=== PATIENT | female | born 1960 | race African-American/Black ===

== ENCOUNTER 2025-04-10 13:09 | Inpatient (IN) | payer OTHER, MEDICAID ==
[~2025-04-10] VITALS: Ht 167.6 cm; Wt 112.2 kg
[~2025-04-10 13:09] MED LIST: AMLO1TAB23 PO; CHOL20007 PO; LOSA100T25 PO; OMEP20TA PO; PRED20TA2 PO
--- NOTE | 2025-04-10 13:21 | ECG ---
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
--- NOTE | 2025-04-10 14:43 | ED.PDOC ---
History of Present Illness HPI Comments 64-year-old female presents to the ER with prior medical history of hypertension, AFib and the chief complaint of chest pain. Patient reports on having dizziness, headache since September, with having a syncopal episode with trauma to her head and with palpitations for the past two days, with also chest pain yesterday. She has had similar symptoms in the past, two years ago. Pt states that the symptoms began around September, and has been gradually worsening for the past two days. Denies chills, fever, N/V/D, SOB. No other associated symptoms, modifiers, recent injuries or sick contacts present at this time. Chief Complaint: Chest Pain Time Seen by MD: 14:00 Primary Care Provider: MIKE Reviewed Notes: Nurses Notes, Medications, Allergies Allergies: Coded Allergies: NO KNOWN ALLERGIES (Unverified , 08/15/23) Home Meds Active Scripts Prednisone (Prednisone) 20 Mg Tab, 20 MG PO DAILY for 5 Days, #5 MG Prov:CARLOS A ARGUETA MD 08/18/23 Reported Medications Cholecalciferol (VITAMIN D3) 2,000 Unit Tab, 1 TAB PO DAILY 08/17/23 Omeprazole (Gnp Omeprazole) 20 Mg Tab, 40 MG PO, TAB 08/17/23 Losartan Potassium & Hydrochlo (Hyzaar) 1 Tab Tab, 1 TAB PO DAILY 08/17/23 Amlodipine Besylate (Amlodipine Besylate) 10 Mg Tab, 1 TAB PO DAILY, % 08/17/23 Information Source: Patient Mode of Arrival: Ambulatory Severity: Moderate Timing: Days Duration: Since onset, Days Prehospital treatment: None Past Medical History PAST MEDICAL HISTORY: AFIB, HTN Surgical History: Denies all surgeries SOFTWARE SPECIALIST History: No Pertinent SOFTWARE SPECIALIST History Family History Family History: Reviewed,noncontributory to illness, Unknown Social History Smoker: Non-Smoker Alcohol: Denies ETOH Use Drugs: Denies Drug Use Lives In: Home Constitutional: denies: chills, diaphoresis, fatigue, fever, malaise, sweats, weakness, others EENTM: denies: blurred vision, double vision, ear bleeding, ear discharge, ear drainage, ear pain, ear ringing, eye pain, eye redness, hearing loss, mouth pain, mouth swelling, nasal discharge, nose bleeding, nose congestion, nose pain, photophobia, tearing, throat pain, throat swelling, voice changes, others Respiratory: denies: cough, hemoptysis, orthopnea, SOB at rest, shortness of breath, SOB with excertion, stridor, wheezing, others Cardiovascular: reports: chest pain, palpitations; denies: dizzy spells, diaphoresis, Dyspnea on exertion, edema, irregular heart beat, left arm pain, lightheadedness, PND, syncope, others Gastrointestinal: denies: abdomen distended, abdominal pain, blood streaked bowels, constipated, diarrhea, dysphagia, difficulty swallowing, hematemesis, melena, nausea, poor appetite, poor fluid intake, rectal bleeding, rectal pain, vomiting, others Genitourinary: denies: abnormal vagina bleeding, burning, dyspareunia, dysuria, flank pain, frequency, hematuria, incontinence, pain, , vagina discharge, urgency, others Neurological: reports: dizziness, fainting, headache; denies: left sided numbness, left sided weakness, numbness, paresthesia, pre-existing deficit, right sided numbness, right sided weakness, seizure, speech problems, tingling, tremors, weakness, others Musculoskeletal: denies: back pain, gout, joint pain, joint swelling, muscle pain, muscle stiffness, neck pain, others Integumetry: denies: bruises, change in color, change in hair/nails, dryness, laceration, lesions, lumps, rash, wounds, others Allergic/Immunocompromised: denies: Difficulty Healing, Frequent Infections, Hives, Itching, others Hematologic/Lymphatic: denies: anemia, blood clots, easy bleeding, easy bruising, swollen glands, others Endocrine: denies: excessive hunger, excessive sweating, excessive thirst, excessive urination, flushing, intolerance to cold, intolerance to heat, unexplained weight gain, unexplained weight loss, others Psychiatric: denies: anxiety, bipolar disorder, depression, hopeless, panic disorder, schizophrenia, sleepless, suicidal, others All Other Systems: Reviewed and Negative Physical Exam General Appearance: Moderate Distress, Normal HEENT: Normal ENT Inspection, Pharynx Normal, TMs Normal Neck: Full Range of Motion, Non-Tender, Normal, Normal Inspection Respiratory: Chest Non-Tender, Lungs Clear, No Accessory Muscle Use, No Respiratory Distress, Normal Breath Sounds Cardiovascular: Irregular, No Edema, No JVD, No Murmur, No Gallop, Normal Peripheral Pulses Breast Exam: Deferred Gastrointestinal: No Organomegaly, Non Tender, No Pulsatile Mass, Normal Bowel Sounds, Soft Genitalia: Deferred Pelvic: Deferred Rectal: Deferred Extremities: No calf tenderness, Normal capillary refill, Normal inspection, Normal range of motion, Non-tender, No pedal edema Musculoskeletal : Apperance: Normal Neurologic: Alert, 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 Was a procedure done?: No Differential Dx Considerations may include: Autonomic disorder Electrolyte imbalance X-Ray, Labs, Meds, VS Vital Signs Date Time Temp Pulse Resp B/P (MAP) Pulse Ox O2 Delivery O2 Flow Rate FiO2 04/10/25 16:42 97 18 143/88 (106) 98 04/10/25 14:35 68 04/10/25 13:27 97.0 70 16 112/54 (73) 98 97.0 04/10/25 13:09 97.1 70 16 112/54 (73) 98 97.1 Lab Test 04/10/25 14:39 04/10/25 13:41 Range/Units Troponin I High Sensitivity 5 5 </=34 ng/L White Blood Count 5.8 4.4-10.8 10^3/uL Red Blood Count 3.86 L 4.0-5.20 10^6/uL Hemoglobin 11.9 L 12.2-16.2 g/dL Hematocrit 35.3 L 36.0-46.0 % Mean Corpuscular Volume 91.6 80.0-100.0 fL Mean Corpuscular Hemoglobin 30.9 28.0-32.0 pg Mean Corpuscular Hemoglobin Concent 33.7 32.0-36.0 g/dL Red Cell Distribution Width 13.6 11.8-14.3 % Platelet Count 222 140-450 10^3/uL Mean Platelet Volume 10.1 6.9-10.8 fL Neutrophils (%) (Auto) 44.1 37.0-80.0 % Lymphocytes (%) (Auto) 44.8 10.0-50.0 % Monocytes (%) (Auto) 7.3 0.0-12.0 % Eosinophils (%) (Auto) 2.7 0.0-7.0 % Basophils (%) (Auto) 1.1 0.0-2.0 % Neutrophils # (Auto) 2.6 1.6-8.6 10 ^3/uL Lymphocytes # (Auto) 2.6 0.4-5.4 10 ^3/uL Monocytes # (Auto) 0.4 0-1.3 10 ^3/uL Eosinophils # (Auto) 0.2 0-0.8 10 ^3/uL Basophils # (Auto) 0.1 0-0.2 10 ^3/uL Nucleated Red Blood Cells 0.1 % Sodium Level 136 136-145 mmol/L Potassium Level 4.0 3.5-5.1 mmol/L Chloride Level 104 98-107 mmol/L Carbon Dioxide Level 24 20-31 mmol/L Anion Gap 8 5-15 Blood Urea Nitrogen 24 H 9-23 mg/dL Creatinine 1.30 H 0.550-1.02 mg/dL Glomerular Filtration Rate Calc 45 >90 mL/min BUN/Creatinine Ratio 18.5 10.0-20.0 Serum Glucose 96 74-106 mg/dL Calcium Level 11.3 H 8.7-10.4 mg/dL Current Medications Medications (Trade) Dose Ordered Sig/Rubin Route Start Time Stop Time Status Last Admin Aspirin 325 mg ONCE ONCE PO 04/10/25 15:30 04/10/25 15:31 DC 04/10/25 16:40 Patient alert. States that she has been having dizziness. No sign of any head injury. Vitals stable. No abnormal behavior. No scalp hematoma. Complaining of chest pain. History of cardiac. Reviewed her previous visit. Spoke with her previous physician about her condition. Cardiac marker within normal limits. EKG does show changes. Possibly will need stress test. Explained to the patient. Continue monitoring. Time of 1ST Reevaluation: 14:30 Reevaluation 1ST: Unchanged Patient Education/Counseling: Diagnosis, Treatment, Prognosis Family Education/Counseling: No Family Present Departure 1 Departure Time of Disposition: 15:28 Impression: Primary Impression: Chest pain of unknown etiology Additional Impression: Autonomic disorder Disposition: ADMITTED INPATIENT Admit to: Med Surg Condition: Guarded Critical Care Note Critical Care Time?: No Stability Stability form required: No Heart Score Heart Score: Heart Score Response (Comments) Value History Slightly Suspicious 0 EKG Normal 0 Age >65 2 Risk Factors >3 or Hx ASHD 2 Troponin Normal limit 0 Total 4 I personally scribed for CARLOS LUNDY MD ([email or web address]) on 04/10/25 at 14:43. Electronically submitted by Felipe Mclain ([email or web address]). CARLOS LUNDY MD Apr 10, 2025 14:43
[2025-04-10] MEDS: NITROGLYCERIN 0.4 MG SL TAB SL ONE (15:30)
[2025-04-10 15:35] LABS: Basophils # (auto) 0.1 10 ^3/uL (0-0.2); Basophils % (auto) 1.1 % (0.0-2.0); Eosinophils # (auto) 0.2 10 ^3/uL (0-0.8); Eosinophils % (auto) 2.7 % (0.0-7.0); Hematocrit 35.3 % (36.0-46.0); Hemoglobin 11.9 g/dL (12.2-16.2); Lymphocytes # (auto) 2.6 10 ^3/uL (0.4-5.4); Lymphocytes % (auto) 44.8 % (10.0-50.0); Mean Corpuscular Hemoglobin 30.9 pg (28.0-32.0); Mean Corpuscular Hgb Conc. 33.7 g/dL (32.0-36.0); Mean Corpuscular Volume 91.6 fL (80.0-100.0); Monocytes # (auto) 0.4 10 ^3/uL (0-1.3); Monocytes % (auto) 7.3 % (0.0-12.0); Neutrophils # (auto) 2.6 10 ^3/uL (1.6-8.6); Neutrophils % (auto) 44.1 % (37.0-80.0); Nucleated Red Blood Cells % 0.1 %; Platelet Count (auto) 222 10^3/uL (140-450); Red Blood Cells 3.86 10^6/uL (4.0-5.20); Red Cell Distribution Width 13.6 % (11.8-14.3); White Blood Cell 5.8 10^3/uL (4.4-10.8)
[2025-04-10 15:37] LABS: Chloride 104 mmol/L (98-107)
[2025-04-10 15:38] LABS: Anion Gap 8 (5-15); Carbon Dioxide 24 mmol/L (20-31)
[2025-04-10 15:43] LABS: Glucose 96 mg/dL (74-106)
[2025-04-10 15:44] LABS: BUN/Creatinine Ratio 18.5 (10.0-20.0)
[2025-04-10 15:53] LABS: Blood Urea Nitrogen 24 mg/dL (9-23); Calcium 11.3 mg/dL (8.7-10.4); Sodium 136 mmol/L (136-145)
[2025-04-10] MEDS: ASPirin 325 MG TAB PO ONE (16:40)
[2025-04-10 20:11] LABS: Urine Bacteria FEW /hpf (None Seen); Urine Blood Negative /uL (Negative); Urine Clarity Clear (Clear); Urine Color Yellow (Yellow); Urine Protein, UAD Negative (Negative); Urine Squamous Epithelial Cell FEW /hpf (<5); Urine Urobilinogen Normal (Negative); Urine WBC 25 /HPF (0-5); Urine pH 5.5 (5.0-9.0)
--- NOTE | 2025-04-10 22:02 | DVH ---
CHEST RADIOGRAPH Indication: chest pain Technique: Single frontal view of the chest was obtained Comparison: None FINDINGS: Lines and Tubes: None Lungs: Clear Pleura: No effusion. No pneumothorax. Cardiomediastinal contours: Unremarkable Bones: Unremarkable IMPRESSION: Clear lungs.
[2025-04-11 02:30] VITALS: PULSE 77; RESP 13; O2SAT 99
--- NOTE | 2025-04-11 02:35 | PRN ---
Misceleneous Note Note Note Patient was seen and evaluated ER waiting room. At this time there have been major delays in care with the patient being in the emergency department for over 13 hours due to hospital staff failing to contact [facility] admitting team. Patient did experience a syncopal episode with head trauma. CT of the head without contrast has been ordered by the emergency department physician. Admission orders pending the results of CT of the head without contrast. NIK JAVIER NP Apr 11, 2025 02:35
[2025-04-11] MEDS ORDERED: ONDANSETRON HCL 4 MG/2 ML VIAL IV PRN (03:15)
[2025-04-11] MEDS ORDERED: LORazepam 0.5 MG TAB PO PRN (03:15)
[2025-04-11] MEDS ORDERED: MECLIZINE HCL 25 MG TAB PO PRN (03:15)
[2025-04-11] MEDS ORDERED: hydrALAZINE HCL 20 MG/ML VL IV PRN (03:15)
[2025-04-11] MEDS ORDERED: NITROGLYCERIN 0.4 MG SL TAB SL PRN (03:15)
[2025-04-11] MEDS ORDERED: MORPHINE SULFATE INJ 2 MG/ml SYRG IV PRN (03:15)
[2025-04-11] MEDS ORDERED: DOCUSATE SOD 100 MG CAP PO PRN (03:15)
--- NOTE | 2025-04-11 03:16 | DVH ---
EXAM: CT HEAD WITHOUT CONTRAST INDICATION: headstrike TECHNIQUE: CT of the head without intravenous contrast. Radiation Dose : 1. Head: CT Dose: CTDI volume is 65.0 mGy. Dose-length product is 1041.65 mGy*cm The dose indicators for CT are the volume Computed Tomography (CT) Dose Index (CTDIvol) and the Dose Length Product (DLP), and are measured in units of mGy and mGy-cm, respectively. These indicators are not patient dose, but values generated from the CT scanner acquisition factors. The report includes radiation exposure data for exposures received during this examination. COMPARISON: CT HEAD WITHOUT CONTRAST on DOS: 08/15/23 FINDINGS: There is no evidence of acute intracranial hemorrhage, extra-axial collection, mass effect, midline s hift, herniation or hydrocephalus. The ventricles, sulci and cisterns are age appropriate. The friedman-white differentiation is intact. The visualized paranasal sinuses and mastoid air cells are clear. The surrounding soft tissues and osseous structures are unremarkable. IMPRESSION: No acute intracranial abnormality. The posterior fossa and cerebellum are suboptimally evaluated secondary to extensive artifact. Radiation optimization: All CT scans at this facility use at least one of these dose optimization ezekiel hniques: automated exposure control mA and/or kV adjustment per patient size (includes targeted exam s where dose is matched to clinical indication) or iterative reconstruction.
[2025-04-11] MEDS: SODIUM CHLORIDE 0.9% 1,000 ML IV SCH (03:49)
--- NOTE | 2025-04-11 04:01 | DVHHP2 ---
NIK JAVIER ELECTRO MECHANICAL DESIGNER 04/11/25 0401: History of Present Illness Reason for Visit: Syncope and collapse, CP History of Present Illness 64-year-old female with past medical history of hypertension, as per the patient irregular heartbeat (without official diagnosis) presents with complaints of a syncopal episode prior to arrival to the emergency department. [place]. States when she woke up everybody was surrounding her. Endorses head injury to the left side of her head. Patient also states that the previous 2 days she has been having episodes of dizziness, palpitations, chest pressure. At this time chest pain and palpitations have improved. States she has not been seen by Cardiology on an outpatient basis. Was previously admitted to this facility in 2022 with similar symptoms. Was seen by Dr. Napoles at that time. During the emergency department evaluation CBC was unremarkable. BMP had a mild elevation in BUN 24, creatinine 1.30, otherwise unremarkable. UA was positive for leukocyte esterase. Troponin -5/5. CT of the head negative. CXR no acute cardiopulmonary disease. At this time patient denies any fevers, chills, shortness of breath, nausea, vomiting, leg swelling, hematemesis, hematochezia, melena, hematuria. Cardiovascular: HTN Smoke: No ALCOHOL: none Drugs: None Lives: with Family Review of Systems Constitutional: No: Fever, Chills, Sweats, Weakness, Malaise, Other Eyes: No: Pain, Vision change, Conjunctivae inflammation, Eyelid inflammation, Other, Redness ENT: No: Ear pain, Ear discharge, Nose pain, Nose discharge, Nose congestion, Mouth pain, Mouth swelling, Throat pain, Throat swelling, Other Respiratory: No: Cough, Dry, Shortness of breath, SOB with excertion, Wheezing, Hemoptysis, Pleuritic Pain, Sputum, Wheezing, Other Cardiovascular: Chest Pain, Palpitations, Lt Headedness; No: Orthopnea, Paroxysmal Noc. Dyspnea, Edema, Other Gastrointestinal: No: Nausea, Vomiting, Abdominal Pain, Diarrhea, Constipation, Melena, Hematochezia, Other Genitourinary: No Dysuria, No Frequency, No Incontinence, No Hematuria, No Retention, No Other Musculoskeletal: No: other, neck pain, shoulder pain, arm pain, back pain, hand pain, leg pain, foot pain Skin: No: Rash, Lesions, Jaundice, Bruising, Other Neurological: No: Weakness, Numbness, Incoordination, Change in speech, Confusion, Seizures, Other Allergies: Coded Allergies: NO KNOWN ALLERGIES (Unverified , 08/15/23) Medications Current Medications Medications Dose Ordered Sig/Rubin Route Start Time Stop Time Status Last Admin Dose Admin Sodium Chloride 1,000 ml @ 75 mls/hr [id number] IV 04/11/25 03:15 04/11/25 16:34 04/11/25 03:49 75 MLS/HR Lorazepam 0.5 mg Q8HPRN PRN PO 04/11/25 03:15 Docusate Sodium 100 mg BIDPRN PRN PO 04/11/25 03:15 Acetaminophen 650 mg Q6HP PRN PO 04/11/25 03:15 Acetaminophen/ Hydrocodone Bitart 1 tab Q6HPRN PRN PO 04/11/25 03:15 Ondansetron HCl 4 mg Q4HP PRN IV 04/11/25 03:15 Enoxaparin Sodium 40 mg DAILY SC 04/11/25 10:00 Nitroglycerin 0.4 mg Q5MINP PRN SL 04/11/25 03:15 Morphine Sulfate 2 mg Q30M PRN IV 04/11/25 03:15 Ceftriaxone Sodium 50 ml @ 100 mls/hr DAILY IV 04/11/25 10:00 Pantoprazole Sodium 40 mg DAILY IV 04/11/25 10:00 Meclizine HCl 25 mg TIDP PRN PO 04/11/25 03:15 Hydralazine HCl 10 mg Q6HPRN PRN IV 04/11/25 03:15 Exam Vital Signs Vital Signs Date Time Temp Pulse Resp B/P (MAP) Pulse Ox O2 Delivery O2 Flow Rate FiO2 04/11/25 02:30 77 13 99 Room Air* 0 21 04/11/25 02:30 97.9 132/80 (97) 97.9 General Appearance: Alert, Oriented X3, Cooperative, mild distress HEENT: Atraumatic, PERRLA, EOMI Respiratory: Clear to auscultation, Normal air movement Cardiovascular: Regular rate, Normal S1, Normal S2 Abdominal: Normal bowel sounds, Soft, No tenderness Extremities: No clubbing, No cyanosis, No edema Skin: No rashes, No breakdown Neuro: Normal speech, Strength at 5/5 X4 ext Psych/Mental Status: Mental status NL, Mood NL Labs/Xrays Labs Test 04/10/25 17:06 04/10/25 14:39 04/10/25 13:41 Range/Units Urine Color Yellow Yellow Urine Clarity Clear Clear Urine pH 5.5 5.0-9.0 Urine Specific [place] 1.010 1.001-1.035 Urine Protein Negative Negative Urine Ketones Negative Negative Urine Blood Negative Negative /uL Urine Nitrite Negative Negative Urine Bilirubin Negative Negative Urine Urobilinogen Normal Negative mg/dL Urine Leukocyte Esterase 3+ Negative /uL Urine RBC 2 0 - 4 /hpf Urine Microscopic WBC 25 H 0-5 /HPF Urine Squamous Epithelial Cells Few <5 /hpf Urine Bacteria Few H None Seen /hpf Urine Glucose Normal Normal mg/dL Troponin I High Sensitivity 5 </=34 ng/L White Blood Count 5.8 4.4-10.8 10^3/uL Red Blood Count 3.86 L 4.0-5.20 10^6/uL Hemoglobin 11.9 L 12.2-16.2 g/dL Hematocrit 35.3 L 36.0-46.0 % Mean Corpuscular Volume 91.6 80.0-100.0 fL Mean Corpuscular Hemoglobin 30.9 28.0-32.0 pg Mean Corpuscular Hemoglobin Concent 33.7 32.0-36.0 g/dL Red Cell Distribution Width 13.6 11.8-14.3 % Platelet Count 222 140-450 10^3/uL Mean Platelet Volume 10.1 6.9-10.8 fL Neutrophils (%) (Auto) 44.1 37.0-80.0 % Lymphocytes (%) (Auto) 44.8 10.0-50.0 % Monocytes (%) (Auto) 7.3 0.0-12.0 % Eosinophils (%) (Auto) 2.7 0.0-7.0 % Basophils (%) (Auto) 1.1 0.0-2.0 % Neutrophils # (Auto) 2.6 1.6-8.6 10 ^3/uL Lymphocytes # (Auto) 2.6 0.4-5.4 10 ^3/uL Monocytes # (Auto) 0.4 0-1.3 10 ^3/uL Eosinophils # (Auto) 0.2 0-0.8 10 ^3/uL Basophils # (Auto) 0.1 0-0.2 10 ^3/uL Nucleated Red Blood Cells 0.1 % Sodium Level 136 136-145 mmol/L Potassium Level 4.0 3.5-5.1 mmol/L Chloride Level 104 98-107 mmol/L Carbon Dioxide Level 24 20-31 mmol/L Anion Gap 8 5-15 Blood Urea Nitrogen 24 H 9-23 mg/dL Creatinine 1.30 H 0.550-1.02 mg/dL Glomerular Filtration Rate Calc 45 >90 mL/min BUN/Creatinine Ratio 18.5 10.0-20.0 Serum Glucose 96 74-106 mg/dL Calcium Level 11.3 H 8.7-10.4 mg/dL Assessment/Plan Assessment/Plan Syncope and collapse Chest pain Hx Hypertension Acute urinary tract infection Acute kidney injury Plan Admit telemetry Cardiology consult. Echocardiogram. Continue home medications. As needed antihypertensive for optimal BP management. Orthostatic vital signs. Serial troponin. IV fluids. NS @75ml/hr x 1 liter IV ABX Monitor BMP. Trend BUN/creatinine. Correct Electrolytes as needed Urine culture pending Physical therapy evaluation GI ppx protonix / DVT ppx lovenox Plan discussed with: Patient My Orders Orders - NIK JAVIER NP Procedure Category Date Status Time Admit ADMIT 04/11/25 Transmitted 03:12 Code Status CODE 04/11/25 Transmitted 03:12 Vital Signs [facility] 04/11/25 In Process 03:12 Review Orders With JO 04/11/25 In Process Adm. 03:12 Encourage Activity As JO 04/11/25 In Process Tolerate 03:12 Consistent DIET 04/11/25 Transmitted Carb(Ccho)Diabetes Breakfast Sodium Chloride 0.9% PHA 04/11/25 In Process 03:15 Oxygen By Face Mask RT 04/11/25 Transmitted 03:12 Lorazepam Tablet PHA 04/11/25 In Process (Ativan Tablet) 03:15 Docusate Sodium PHA 04/11/25 In Process Capsule (Colace 03:15 Acetaminophen Tablet PHA 04/11/25 In Process (Tylenol Tablet) 03:15 Notify Of Changes JO 04/11/25 In Process From Base 03:12 Advance Directive JO 04/11/25 In Process 03:12 Echo 2d Mode Cardiac US 04/11/25 Logged DOP 03:12 Basic Metabolic Panel LAB 04/11/25 Logged 05:00 Basic Metabolic Panel LAB 04/12/25 Verified 05:00 Basic Metabolic Panel LAB 04/13/25 Verified 05:00 Complete Blood Count LAB 04/11/25 Logged 05:00 Complete Blood Count LAB 04/12/25 Verified 05:00 Complete Blood Count LAB 04/13/25 Verified 05:00 Urine Bacterial ANUSHA 04/11/25 Logged Culture 03:12 Patient Condition ORDERS 04/11/25 Transmitted 03:12 Allergies JO 04/11/25 In Process 03:12 Hydrocodone-Acet PHA 04/11/25 In Process 5/325mg Tab ([place] 03:15 Ondansetron Hcl PHA 04/11/25 In Process (Zofran) 03:15 Enoxaparin Sodium PHA 04/11/25 In Process (Lovenox) 10:00 Sequential JO 04/11/25 In Process Compression Device Nitroglycerin PHA 04/11/25 In Process Sublingual (Ntrostat 03:15 Morphine Sulfate PHA 04/11/25 In Process Injection 03:15 Stat Ekg For Chest JO 04/11/25 In Process Pain 03:12 Notify Md Of Changes JO 04/11/25 In Process From Base 03:12 Garment Parts Cutter Hand For JO 04/11/25 In Process 24 Hours 03:12 Emergency Dysrhythmia JO 04/11/25 In Process Protocol 03:12 Rhythm Strips Once JO 04/11/25 In Process Every Shift 03:12 Oxygen By Nasal RT 04/11/25 Transmitted Cannula 03:12 * Cardiology Consult CONS 04/11/25 Transmitted 03:12 Orthostatic Vital ORDERS 04/11/25 Transmitted Signs 08:00 Orthostatic Vital ORDERS 04/11/25 Transmitted Signs 14:00 Orthostatic Vital ORDERS 04/11/25 Transmitted Signs 20:00 Orthostatic Vital ORDERS 04/12/25 Transmitted Signs 02:00 Ceftriaxone 1gm/50ml PHA 04/11/25 In Process D5w (Rocephin) 10:00 Pantoprazole PHA 04/11/25 In Process (Protonix) 10:00 Meclizine Tablet PHA 04/11/25 In Process (Antivert Tablet) 03:15 Troponin-I Hs LAB 04/11/25 Logged 05:00 Troponin-I Hs LAB 04/11/25 Logged 13:00 Hydralazine Injection PHA 04/11/25 In Process (Apresoline Inject 03:15 Pt Request For Service PT 04/11/25 Logged 03:33 Date of Service: Apr 11, 2025 Billing Provider: POOJA AYALA MD Common Visit Codes: NOT BILLABLE POOJA AYALA MD 04/11/25 1316: Review of Systems Allergies: Coded Allergies: NO KNOWN ALLERGIES (Unverified , 08/15/23) Assessment/Plan Assessment/Plan Patient's chart is reviewed and discussed with the nurse practitioner. I agree with the nurse practitioner's evaluation, documentation, assessment and care plan as outlined. NIK JAVIER NP Apr 11, 2025 04:01 POOJA AYALA MD Apr 11, 2025 13:16
[2025-04-11 05:05] LABS: Basophils # (auto) 0.1 10 ^3/uL (0-0.2); Basophils % (auto) 1.3 % (0.0-2.0); Eosinophils # (auto) 0.2 10 ^3/uL (0-0.8); Eosinophils % (auto) 3.1 % (0.0-7.0); Hematocrit 34.7 % (36.0-46.0); Hemoglobin 11.7 g/dL (12.2-16.2); Lymphocytes # (auto) 2.4 10 ^3/uL (0.4-5.4); Lymphocytes % (auto) 44.2 % (10.0-50.0); Mean Corpuscular Hemoglobin 31.2 pg (28.0-32.0); Mean Corpuscular Hgb Conc. 33.8 g/dL (32.0-36.0); Mean Corpuscular Volume 92.3 fL (80.0-100.0); Monocytes # (auto) 0.3 10 ^3/uL (0-1.3); Monocytes % (auto) 5.9 % (0.0-12.0); Neutrophils # (auto) 2.5 10 ^3/uL (1.6-8.6); Neutrophils % (auto) 45.5 % (37.0-80.0); Nucleated Red Blood Cells % 0.2 %; Platelet Count (auto) 212 10^3/uL (140-450); Red Blood Cells 3.76 10^6/uL (4.0-5.20); Red Cell Distribution Width 13.7 % (11.8-14.3); White Blood Cell 5.4 10^3/uL (4.4-10.8)
[2025-04-11 05:13] LABS: Chloride 102 mmol/L (98-107)
[2025-04-11 05:14] LABS: Anion Gap 10 (5-15); Calcium 10.7 mg/dL (8.7-10.4); Carbon Dioxide 24 mmol/L (20-31); Potassium 3.5 mmol/L (3.5-5.1); Sodium 136 mmol/L (136-145)
[2025-04-11 05:19] LABS: BUN/Creatinine Ratio 13.5 (10.0-20.0); Blood Urea Nitrogen 17 mg/dL (9-23); Glucose 99 mg/dL (74-106)
[2025-04-11 08:00] VITALS: PULSE 62; RESP 12; O2SAT 96
[2025-04-11] MEDS: cefTRIAXone 1GM/50ML D5W 50 ML IV SCH (10:57)
[2025-04-11] MEDS: ENOXAPARIN SOD 40 MG/0.4 ML SYRINGE SC SCH (10:57)
[2025-04-11] MEDS: PANTOPRAZOLE 40 MG/10 ML VIAL INJ IV SCH (10:57)
[2025-04-11] MEDS: amLODIPine BESYLATE 5 MG TAB PO SCH (10:58)
[2025-04-11] MEDS ORDERED: amLODIPine BESYLATE 5 MG TAB PO ONE (13:15)
--- NOTE | 2025-04-11 13:46 | DVHSR ---
APPROVED REPORT EXAM: Two-dimensional and M-mode echocardiogram with Doppler and color Doppler. Mitral Valve MitralMitral Stenosis E/A ratio0.02D MVAcm2 LEFT VENTRICLE The left ventricle is normal size. The left ventricle is normal in structure and function. Left ventricle systolic function is normal. The Ejection Fraction is 60%. No regional wall motion abnormalities noted. RIGHT VENTRICLE The right ventricle is normal size. There is normal right ventricular wall thickness. The right ventricular systolic function is normal. ATRIA The left atrium size is normal. The right atrium size is normal. The interatrial septum is intact with no evidence for an atrial septal defect. MITRAL VALVE The mitral valve is normal in structure and function. There is no evidence of mitral valve prolapse. There is no mitral valve stenosis. There is no mitral valve regurgitation noted. PULMONIC VALVE The pulmonary valve is normal in structure and function. There is no pulmonic valvular regurgitation. There is no pulmonic valvular stenosis. TRICUSPID VALVE The tricuspid valve is normal in structure and function. There is mild tricuspid regurgitation. There is no tricuspid valve prolapse or vegetation. There is no tricuspid valve stenosis. AORTIC VALVE The aortic valve is normal in structure and function. No aortic regurgitation is present. There is no aortic valvular stenosis. There is no aortic valvular vegetation. GREAT VESSELS The aortic root is normal in size. PERICARDIAL EFFUSION There is a no pericardial effusion. Conclusion There is moderate concentric left ventricular hypertrophy. The left ventricle systolic function is normal There is mild left atrial enlargement. The Ejection Fraction is 60%. There is mild tricuspid regurgitation There is no pericardial effusion.
[2025-04-11 17:30] VITALS: PULSE 66
[2025-04-11] MEDS: LOSARTAN POTASSIUM 25 MG TAB PO SCH (17:47)
[2025-04-11 17:56] VITALS: BP 144/91; PULSE 78; RESP 19; TEMP 98.2; O2SAT 99
[2025-04-11 20:00] VITALS: BP_SYST 119; BP_SYST 125; BP_DIAS 59; BP_DIAS 71; BP_DIAS 74; PULSE 100; PULSE 104; PULSE 78; PULSE 96
[2025-04-11 21:00] VITALS: BP 136/71; PULSE 75; RESP 19; TEMP 97.6; O2SAT 99
[2025-04-12] VITALS (9 sets, daily range): BP systolic 104–140; BP diastolic 60–77; PULSE 16–82; RESP 16–18; TEMP 97.3–97.8; O2SAT 97–99
[2025-04-12] MEDS: ACETAMINOPHEN 325 MG TAB PO PRN (04:31)
--- NOTE | 2025-04-12 05:17 | DVHINCON2 ---
DATE OF CONSULTATION: 04/11/2025 REFERRING PHYSICIAN: ____ CONSULTING PHYSICIAN: Manpreet Napoles MD INDICATION: Syncope, chest pain. HISTORY OF PRESENT ILLNESS: The patient is a 64-year-old female with history of hypertension, questionable history of AFib, who presented to the hospital as she had an episode of [place] of [place]. The patient stated that prior to the episode she had intense chest pain described it as pressure and felt dizzy and short of breath. The patient states over the past several months, she has been having progressively worsening episodes of chest pain described as pressure followed by palpitations, dizziness, dizzy spells and extreme fatigue. She denies any orthopnea or paroxysmal nocturnal dyspnea. PAST MEDICAL HISTORY: Hypertension. MEDICATIONS: Per med rec. ALLERGIES: No known drug allergies. PHYSICAL EXAMINATION: GENERAL: Alert and awake, in no form of acute cardiopulmonary distress. VITAL SIGNS: Blood pressure 130/65, pulse 64 per minute, saturation 97%. HEENT: No carotid bruits. No jugular venous distention. CHEST: Bilateral air entry. CARDIOVASCULAR: Precordial and carotid pulses palpable. Normal S1, S2. Regular rate and rhythm. No appreciable gallop or rubs. EXTREMITIES: No peripheral edema. DIAGNOSTIC DATA: White count 5, hemoglobin 11, platelets 212. Sodium 136, potassium 3.5, creatinine is 1.26. Troponins negative x 3. ASSESSMENT: * Syncope with prodromal symptoms of chest pressure and palpitations to exclude ischemic etiology. * Chest pain, MA has been ruled out with serial negative troponin. * Hypertension. * Questionable history of atrial fibrillation. * Urinary tract infection. RECOMMENDATIONS: * Continue aspirin. * Monitor electrolytes. * Obtain echo. * We will recommend left heart catheterization to exclude ischemic heart disease. The patient understands the risks, benefits, and alternatives and agreed to proceed. * Continue telemetry monitoring. Thank you for allowing me to participate in the care of this patient. MD DIAN Epps/CLARE/DACIA TID: [id number] RECEIPT: [id number]
[2025-04-12 06:58] LABS: Anion Gap 8 (5-15); Carbon Dioxide 24 mmol/L (20-31); Potassium 3.7 mmol/L (3.5-5.1); Sodium 140 mmol/L (136-145)
[2025-04-12 07:00] LABS: Basophils # (auto) 0 10 ^3/uL (0-0.2); Basophils % (auto) 0.3 % (0.0-2.0); Eosinophils # (auto) 0.2 10 ^3/uL (0-0.8); Eosinophils % (auto) 3.8 % (0.0-7.0); Hematocrit 39.1 % (36.0-46.0); Hemoglobin 13.3 g/dL (12.2-16.2); Lymphocytes # (auto) 1.8 10 ^3/uL (0.4-5.4); Lymphocytes % (auto) 43.8 % (10.0-50.0); Mean Corpuscular Hemoglobin 31.7 pg (28.0-32.0); Mean Corpuscular Hgb Conc. 34.1 g/dL (32.0-36.0); Monocytes # (auto) 0.3 10 ^3/uL (0-1.3); Monocytes % (auto) 7.2 % (0.0-12.0); Neutrophils # (auto) 1.9 10 ^3/uL (1.6-8.6); Neutrophils % (auto) 44.9 % (37.0-80.0); Platelet Count (auto) 240 10^3/uL (140-450); White Blood Cell 4.2 10^3/uL (4.4-10.8)
[2025-04-12 07:04] LABS: BUN/Creatinine Ratio 15.1 (10.0-20.0); Blood Urea Nitrogen 11 mg/dL (9-23); Glucose 94 mg/dL (74-106)
[2025-04-12 07:07] LABS: Chloride 108 mmol/L (98-107)
--- NOTE | 2025-04-12 07:24 | ECG ---
[facility] Test Date: 2025-04-10 Test Time: 14:35:41 Pat Name: DOM ALMAZAN Department: ER Room: 0222T A Gender: F Pet Training Instructor: DR BAIRD: 1960 Requested By: HUGO CASTELAN Order Number: [id number] Reading MD: Jayesh Duncan Measurements Intervals [place] Rate: 68 P: 17 RI: 182 QRS: 12 QRSD: 79 T: 4 QT: 353 QTc: 376 Interpretive Statements Sinus rhythm Supraventricular bigeminy Low voltage, precordial leads Minimal ST depression, diffuse leads Electronically Signed On 04-12-2025 14:56:30 PDT by Jayesh Duncan Please click the below link to view image of tracing.
[2025-04-12 09:09] LABS: INR 1.05 (0.9-1.15); Partial Thromboplastin Time 29.3 SEC (24.5-34.5); Prothrombin Time 11.1 sec (9.3-11.8)
[2025-04-12] MEDS: amLODIPine BESYLATE 5 MG TAB PO SCH (10:03)
[2025-04-12 10:17] LABS: Hepatitis B Surface Antigen Negative (Negative)
[2025-04-12 10:42] LABS: Hepatitis C Antibody Negative (Negative)
--- NOTE | 2025-04-12 14:03 | DVHPN2 ---
Progress Note - Dictate Date Seen: Apr 12, 2025 Medical Necessity Reason Pt with a Central, PICC or Fol: No Subjective No complaints of dizziness or lightheadedness. No complaints chest pain or shortness for breath at present. vital signs Vital Sign Date Time Temp Pulse Resp B/P (MAP) Pulse Ox O2 Delivery O2 Flow Rate FiO2 04/12/25 10:03 137/77 04/12/25 09:00 97.4 61 16 98 97.4 04/12/25 08:00 Room Air* 0 21 Total Intake and Output 04/11/25 04/11/25 04/12/25 15:00 23:00 07:00 Intake Total 650 ml 350 ml Balance 650 ml 350 ml medications Current Medications Medications Dose Ordered Sig/Rubin Route Start Time Stop Time Status Last Admin Dose Admin Lorazepam 0.5 mg Q8HPRN PRN PO 04/11/25 03:15 Docusate Sodium 100 mg BIDPRN PRN PO 04/11/25 03:15 Acetaminophen 650 mg Q6HP PRN PO 04/11/25 03:15 04/12/25 10:12 650 MG Acetaminophen/ Hydrocodone Bitart 1 tab Q6HPRN PRN PO 04/11/25 03:15 Ondansetron HCl 4 mg Q4HP PRN IV 04/11/25 03:15 Enoxaparin Sodium 40 mg DAILY SC 04/11/25 10:00 04/11/25 10:57 40 MG Nitroglycerin 0.4 mg Q5MINP PRN SL 04/11/25 03:15 Morphine Sulfate 2 mg Q30M PRN IV 04/11/25 03:15 Ceftriaxone Sodium 50 ml @ 100 mls/hr DAILY IV 04/11/25 10:00 04/12/25 10:04 100 MLS/HR Pantoprazole Sodium 40 mg DAILY IV 04/11/25 10:00 04/12/25 10:03 40 MG Meclizine HCl 25 mg TIDP PRN PO 04/11/25 03:15 Hydralazine HCl 10 mg Q6HPRN PRN IV 04/11/25 03:15 Amlodipine Besylate 10 mg DAILY PO 04/12/25 10:00 04/12/25 10:03 10 MG Losartan Potassium 25 mg QPM PO 04/11/25 18:00 04/11/25 17:47 25 MG objective Comfortable without pain at present. Heart regular rate and rhythm S1-S2. Lungs without rales wheezes. Abdomen soft positive bowel sounds. Extremities positive pedal pulses. laboratory and microbiology Laboratory Tests 04/12/25 06:12 Test 04/12/25 06:12 Range/Units Serum Glucose 94 74-106 mg/dL Assessment/Plan She is clinically stable. Discussed with the job training supervisor. He is recommending coronary angiogram. She is scheduled for angiogram tomorrow by Dr. Mclain. Meantime continue current supportive care and treatment as she is on. Further clinical management per angiogram findings. Problems(with codes): (1) Syncope (2) Autonomic disorder (3) Chest pain of unknown etiology Plan discussed with: Patient, Other POOJA AYALA MD Apr 12, 2025 14:03
[2025-04-12] MEDS: HYDROcodone-ACET 5/325MG TAB PO PRN (20:47)
[2025-04-13] VITALS (11 sets, daily range): BP systolic 111–146; BP diastolic 54–82; PULSE 50–97; RESP 12–18; TEMP 97.1–97.7; O2SAT 95–99
[2025-04-13 06:44] LABS: Basophils # (auto) 0.1 10 ^3/uL (0-0.2); Basophils % (auto) 1.3 % (0.0-2.0); Eosinophils # (auto) 0.3 10 ^3/uL (0-0.8); Eosinophils % (auto) 6.6 % (0.0-7.0); Hematocrit 34.4 % (36.0-46.0); Hemoglobin 11.6 g/dL (12.2-16.2); Lymphocytes # (auto) 2.1 10 ^3/uL (0.4-5.4); Mean Corpuscular Hemoglobin 31.4 pg (28.0-32.0); Mean Corpuscular Hgb Conc. 33.7 g/dL (32.0-36.0); Mean Corpuscular Volume 93.1 fL (80.0-100.0); Monocytes # (auto) 0.4 10 ^3/uL (0-1.3); Monocytes % (auto) 7.8 % (0.0-12.0); Neutrophils # (auto) 1.7 10 ^3/uL (1.6-8.6); Neutrophils % (auto) 37.3 % (37.0-80.0); Nucleated Red Blood Cells % 0.1 %; Platelet Count (auto) 203 10^3/uL (140-450); White Blood Cell 4.5 10^3/uL (4.4-10.8)
[2025-04-13 06:46] LABS: Carbon Dioxide 25 mmol/L (20-31); Potassium 3.7 mmol/L (3.5-5.1); Sodium 141 mmol/L (136-145)
[2025-04-13 06:47] LABS: Anion Gap 8 (5-15)
[2025-04-13 06:52] LABS: Chloride 108 mmol/L (98-107)
[2025-04-13 06:53] LABS: BUN/Creatinine Ratio 11.4 (10.0-20.0); Blood Urea Nitrogen 12 mg/dL (9-23); Glucose 91 mg/dL (74-106)
[2025-04-13] MEDS: IODIXANOL 320MG/ML 100ML BTL IV ONE (07:34)
[2025-04-13] MEDS: ANGIOMAX 250 MG VIAL IV ONE (08:33)
[2025-04-13] MEDS: HEPARIN SODIUM (PORCINE) 5000 UNITS/ML 1ML VIAL ONE (08:33)
[2025-04-13] MEDS: SODIUM CHL 0.9% 0 ML ONE (08:33)
[2025-04-13] MEDS: MIDAZOLAM HCL 2MG/2ML 2ml VIAL (1mg/ml) ONE (08:33)
[2025-04-13] MEDS: LIDOCAINE 2%HCL (LOCAL ANESTH.) INJ 20ML MDV ONE (08:34)
[2025-04-13] MEDS: VERAPAMIL 2.5MG/ML INJ 2ML VIAL IV ONE (08:34)
[2025-04-13] MEDS: fentaNYL CITRATE 100 MCG/2 ML VL ONE (08:37)
--- NOTE | 2025-04-13 08:45 | DVHOP2 ---
Operative Report Operative Report CARDIAC JOB PLACEMENT SPECIALIST PROCEDURE REPORT [place], [place] Date of Service: 04/13/25 Sandblast Operator: Sulma Kate MD PROCEDURES PERFORMED: Coronary angiogram, left heart catheterization, conscious sedation administration and supervision, less than 15 minutes; fluoroscopy use and interpretation. PREOPERATIVE DIAGNOSES: ACS POSTOP DIAGNOSIS: moderate CAD DESCRIPTION OF PROCEDURE: The patient or appropriate family signed informed consent understanding the risks, benefits and alternatives of the procedure, they wished to proceed. The patient was brought to the cardiac medical laboratory technician in n.p.o. state. The patient was prepped in a sterile fashion. Sedation was used per cardiac cath protocol. I administered 2 mL of 2% lidocaine to the right wrist. With an antegrade front wall puncture. I cannulated the right radial artery and placed a 6-Turk[place] Glidesheath slender. Next, an intra-arterial spasmolytic was administered. Next, a - 6French [place] catheter an and were used for coronary angiogram and LVEDP measurement and pressure pullback. At the completion of procedure, all guides and wires were removed, and there were no immediate complications. 5000 U of IV heparin given. FINDINGS: RCA: Moderate vessel off the right sinus of Valsalva, this is non dominant vessel. mid RCA has calcific 50% stenosis. distal RCA gives off a focal 60--70% stenosis LEFT MAIN: Moderate size left main, it bifurcates into LAD and circumflex. no stenosis. short LM CIRCUMFLEX: Moderate caliber vessel coming off the left main. prox CX has mild plaque. its a dominant vessel. OM1 has a 50% long tubular stenosis. OM2 has mild plaque. OM3 has long diffuse 50% non critical cad. OM4 has mild plaque LAD: LAD is a moderate caliber vessel coming of the left main. prox LAD has mild diffuse plaque. D1 irene a 70% prox stenosis. distal LAD has sequential 50 and 60% stenosis CONCLUSIONS: 1. moderate diffuse non critical cad 2. sinus bradycardia PLAN: Aggressive risk factor modification and medical management for the patient. SULMA KATE MD Apr 13, 2025 08:45
[2025-04-13] MEDS ORDERED: ATOR40TA52 PO (15:01)
--- NOTE | 2025-04-13 15:05 | DVHDS2 ---
Discharge Summary Date of Admission Apr 11, 2025 at 03:12 Date of Discharge: Apr 13, 2025 Labs/Diagnostic Data: Laboratory Results Test 04/13/25 05:54 04/12/25 08:32 04/12/25 06:12 04/11/25 13:00 White Blood Count 4.5 10^3/uL (4.4-10.8) Red Blood Count 3.70 10^6/uL (4.0-5.20) Hemoglobin 11.6 g/dL (12.2-16.2) Hematocrit 34.4 % (36.0-46.0) Mean Corpuscular Volume 93.1 fL (80.0-100.0) Mean Corpuscular Hemoglobin 31.4 pg (28.0-32.0) Mean Corpuscular Hemoglobin Concent 33.7 g/dL (32.0-36.0) Red Cell Distribution Width 14.0 % (11.8-14.3) Platelet Count 203 10^3/uL (140-450) Mean Platelet Volume 9.6 fL (6.9-10.8) Neutrophils (%) (Auto) 37.3 % (37.0-80.0) Lymphocytes (%) (Auto) 47.0 % (10.0-50.0) Monocytes (%) (Auto) 7.8 % (0.0-12.0) Eosinophils (%) (Auto) 6.6 % (0.0-7.0) Basophils (%) (Auto) 1.3 % (0.0-2.0) Neutrophils # (Auto) 1.7 10 ^3/uL (1.6-8.6) Lymphocytes # (Auto) 2.1 10 ^3/uL (0.4-5.4) Monocytes # (Auto) 0.4 10 ^3/uL (0-1.3) Eosinophils # (Auto) 0.3 10 ^3/uL (0-0.8) Basophils # (Auto) 0.1 10 ^3/uL (0-0.2) Nucleated Red Blood Cells 0.1 % Sodium Level 141 mmol/L (136-145) Potassium Level 3.7 mmol/L (3.5-5.1) Chloride Level 108 mmol/L (98-107) Carbon Dioxide Level 25 mmol/L (20-31) Anion Gap 8 (5-15) Blood Urea Nitrogen 12 mg/dL (9-23) Creatinine 1.05 mg/dL (0.550-1.02) Glomerular Filtration Rate Calc 59 mL/min (>90) BUN/Creatinine Ratio 11.4 (10.0-20.0) Serum Glucose 91 mg/dL (74-106) Calcium Level 11.0 mg/dL (8.7-10.4) Prothrombin Time 11.1 sec (9.3-11.8) Prothrombin Time INR 1.05 (0.9-1.15) Activated Partial Thromboplast Time 29.3 SEC (24.5-34.5) Thyroid Stimulating Hormone (TSH) 3.12 uIU/mL (0.55-4.78) Troponin I High Sensitivity 5 ng/L (</=34) Hepatitis B Surface Antigen Negative (Negative) Hepatitis C Antibody Negative (Negative) Test 04/10/25 17:06 Urine Color Yellow (Yellow) Urine Clarity Clear (Clear) Urine pH 5.5 (5.0-9.0) Urine Specific [place] 1.010 (1.001-1.035) Urine Protein Negative (Negative) Urine Ketones Negative (Negative) Urine Blood Negative /uL (Negative) Urine Nitrite Negative (Negative) Urine Bilirubin Negative (Negative) Urine Urobilinogen Normal mg/dL (Negative) Urine Leukocyte Esterase 3+ /uL (Negative) Urine RBC 2 /hpf (0 - 4) Urine Microscopic WBC 25 /HPF (0-5) Urine Squamous Epithelial Cells Few /hpf (<5) Urine Bacteria Few /hpf (None Seen) Urine Glucose Normal mg/dL (Normal) Other Laboratory Tests 04/13/25 05:54 Brief Hx & Hospital Course: 64-year-old female with past medical history of hypertension, as per the patient irregular heartbeat (without official diagnosis) presents with complaints of a syncopal episode prior to arrival to the emergency department. patient [place] she [place] out. States when she woke up everybody was surrounding her. Endorses head injury to the left side of her head. Patient also states that the previous 2 days she has been having episodes of dizziness, palpitations, chest pressure. At this time chest pain and palpitations have improved. States she has not been seen by Cardiology on an outpatient basis. Was previously admitted to this facility in 2022 with similar symptoms. Was seen by Dr. Thompson at that time. During the emergency department evaluation CBC was unremarkable. BMP had a mild elevation in BUN 24, creatinine 1.30, otherwise unremarkable. UA was positive for leukocyte esterase. Troponin -5/5. CT of the head negative. CXR no acute cardiopulmonary disease. At this time patient denies any fevers, chills, shortness of breath, nausea, vomiting, leg swelling, hematemesis, hematochezia, melena, hematuria. She is admitted and evaluated by contracting officer. Given her history patient is recommended to undergo coronary angiogram. She had a coronary angiogram done today showed a diffuse moderate coronary artery disease recommended medical therapy. Recommended aggressive risk factor modification. Therefore I have talked with the patient regarding diet exercise, low fat low-cholesterol intake and weight loss. She is also advised to continue the statin given the significant coronary artery disease. Also advised to continue baby aspirin once her vaginal spotting and bleeding stops. Meantime she is advised to follow up with the contracting officer for further management. I have also advised to follow up with OBGYN for her spotting complaints. Otherwise in the hospital her cardiac workup is done and she is clinically stable. Therefore it is felt she could be safely discharged home with continued outpatient treatment and follow up as mentioned. I have talked with the patient regarding this, talked to her about her coronary angiogram report results, discharge diagnosis, discharge medications including side effects of myopathy with statins and elevated liver tests, discharge instructions and follow-up plan of care. She has verbalized understanding of these and agree with the care plan as outlined. Consults/Reason for consult APPROVED REPORT EXAM: Two-dimensional and M-mode echocardiogram with Doppler and color Doppler. Mitral Valve Mitral Mitral Stenosis E/A ratio 0.0 2D MVA cm2 LEFT VENTRICLE The left ventricle is normal size. The left ventricle is normal in structure and function. Left ventricle systolic function is normal. The Ejection Fraction is 60%. No regional wall motion abnormalities noted. RIGHT VENTRICLE The right ventricle is normal size. There is normal right ventricular wall thickness. The right ventricular systolic function is normal. ATRIA The left atrium size is normal. The right atrium size is normal. The interatrial septum is intact with no evidence for an atrial septal defect. MITRAL VALVE The mitral valve is normal in structure and function. There is no evidence of mitral valve prolapse. There is no mitral valve stenosis. There is no mitral valve regurgitation noted. PULMONIC VALVE The pulmonary valve is normal in structure and function. There is no pulmonic valvular regurgitation. There is no pulmonic valvular stenosis. TRICUSPID VALVE The tricuspid valve is normal in structure and function. There is mild tricuspid regurgitation. There is no tricuspid valve prolapse or vegetation. There is no tricuspid valve stenosis. AORTIC VALVE The aortic valve is normal in structure and function. No aortic regurgitation is present. There is no aortic valvular stenosis. There is no aortic valvular vegetation. GREAT VESSELS The aortic root is normal in size. PERICARDIAL EFFUSION There is a no pericardial effusion. Conclusion There is moderate concentric left ventricular hypertrophy. The left ventricle systolic function is normal There is mild left atrial enlargement. The Ejection Fraction is 60%. There is mild tricuspid regurgitation There is no pericardial effusion. SIGNED BY: MAL THOMPSON MD SIGNED DATE/TIME: 04/11/25 1345 Operations or Procedures Operative Report Operative Report CARDIAC PAPER BALER PROCEDURE REPORT [place], [place] Date of Service: 04/13/25 Car Greaser: Sulma Kate MD PROCEDURES PERFORMED: Coronary angiogram, left heart catheterization, conscious sedation administration and supervision, less than 15 minutes; fluoroscopy use and interpretation. PREOPERATIVE DIAGNOSES: ACS POSTOP DIAGNOSIS: moderate CAD DESCRIPTION OF PROCEDURE: The patient or appropriate family signed informed consent understanding the risks, benefits and alternatives of the procedure, they wished to proceed. The patient was brought to the cardiac technical laboratory asst in n.p.o. state. The patient was prepped in a sterile fashion. Sedation was used per cardiac cath protocol. I administered 2 mL of 2% lidocaine to the right wrist. With an antegrade front wall puncture. I cannulated the right radial artery and placed a 6-Lao Glidesheath slender. Next, an intra-arterial spasmolytic was administered. Next, a - 6French [place] catheter an and were used for coronary angiogram and LVEDP measurement and pressure pullback. At the completion of procedure, all guides and wires were removed, and there were no immediate complications. 5000 U of IV heparin given. FINDINGS: RCA: Moderate vessel off the right sinus of Valsalva, this is non dominant vessel. mid RCA has calcific 50% stenosis. distal RCA gives off a focal 60--70% stenosis LEFT MAIN: Moderate size left main, it bifurcates into LAD and circumflex. no stenosis. short LM CIRCUMFLEX: Moderate caliber vessel coming off the left main. prox CX has mild plaque. its a dominant vessel. OM1 has a 50% long tubular stenosis. OM2 has mild plaque. OM3 has long diffuse 50% non critical cad. OM4 has mild plaque LAD: LAD is a moderate caliber vessel coming of the left main. prox LAD has mild diffuse plaque. D1 irene a 70% prox stenosis. distal LAD has sequential 50 and 60% stenosis CONCLUSIONS: 1. moderate diffuse non critical cad 2. sinus bradycardia PLAN: Aggressive risk factor modification and medical management for the patient. SULMA KATE MD Apr 13, 2025 08:45 Condition at Discharge: Stable Final Diagnosis/Problems List Mild to moderate coronary artery atherosclerotic vascular disease status post coronary angiogram recommended medical manage, morbid obesity with a BMI 39, hypertension Discharge Disposition: Home Discharge Instruct/Medications Diet: Consistent carbohydrate, Cardiac 2g Na,low cholest Activity: No Restrictions, As Tolerated Follow Up/Referral: Dr. Salazar contracting officer after two weeks for further management of your coronary artery disease. Follow up with OBGYN doctor after two weeks for spotting and any bleeding. Meantime follow up at [facility] urgent care should you have any new or recurrent symptoms. Medications: As prescribed and home medications. New Medications: Atorvastatin Calcium (Atorvastatin Calcium) 40 Mg Tab 1 TAB PO QPM, #90 TAB 3 Refills Continued Medications: Amlodipine Besylate (Amlodipine Besylate) 10 Mg Tab 1 TAB PO DAILY, % Cholecalciferol (Vitamin D3) 2,000 Unit Tab 1 TAB PO DAILY Losartan Potassium & Hydrochlo (Hyzaar) 1 Tab Tab 1 TAB PO DAILY Omeprazole (Gnp Omeprazole) 20 Mg Tab 40 MG PO, TAB Discontinued Medications: Prednisone (Prednisone) 20 Mg Tab 20 MG PO DAILY for 5 Days, #5 MG Discharge Statement: "Patient was advised to return to the ER or call 911 if any headaches, dizziness, shortness of breath, chest pain, abdominal pain, bleeding, fevers, or worsening of medical condition. Patient was counseled about treatment plan, medications, possible side effects, patientverbalized understanding. All questions were answered to the best of my ability. This discharge took greater then 30 minutes in planning, reviewing documentation, counseling the patient, and discussing with other team members." ASSESSMENT ASSESSMENT Assessment Mild to moderate coronary artery atherosclerotic vascular disease status post coronary angiogram recommended medical manage, morbid obesity with a BMI 39, hypertension POOJA AYALA MD Apr 13, 2025 15:05
[2025-04-13] MEDS ORDERED: ATORVASTATIN 20 MG TAB PO SCH (22:00)
[2025-04-14] MEDS ORDERED: ASPirin-EC 81 mg tab PO SCH (10:00)
== END 2025-04-13 17:34 | disposition home or self-care (01) | DRG 286 ==
LOC: ER 13:09 → OVERFLOW 04-11 03:12 → TELE-CENTR 04-11 17:28
PROVIDERS: ADMIT Nurse Practitioner Family; ATTEND Nurse Practitioner Family
PROC: 4A023N7 Measurement of Cardiac Sampling and Pressure, Left Heart, Percutaneous Approach (ICD-10-PCS; principal; 2025-04-13)
PROC: B211YZZ Fluoroscopy of Multiple Coronary Arteries using Other Contrast (ICD-10-PCS; 2025-04-13)
DX: R00.1 Bradycardia, unspecified (principal); N17.0 Acute kidney failure with tubular necrosis; N39.0 Urinary tract infection, site not specified; I25.10 Atherosclerotic heart disease of native coronary artery without angina pectoris; I10 Essential (primary) hypertension; I48.91 Unspecified atrial fibrillation; G90.89 Other disorders of autonomic nervous system; S09.8XXA Other specified injuries of head, initial encounter; Z79.899 Other long term (current) drug therapy; X58.XXXA Exposure to other specified factors, initial encounter; Y93.89 Activity, other specified; Y92.89 Other specified places as the place of occurrence of the external cause; Y99.8 Other external cause status
CPT/HCPCS: 36415; 70450; 71045; 80048; 81001; 84443; 84484; 85025; 85610; 85730; 86803; 86850; 86900; 86901; 87340; 93005; 93306; 93458; 97110; 97116; 97163; 99152; G0378; J2250; J2470; Q9967